=== PATIENT | male | born 1970 | race Native Hawaiian/Other Pacific Islander ===

== ENCOUNTER 2022-04-18 09:20 | Emergency (ER) | payer BC ==
[~2022-04-18] VITALS: Ht 182.9 cm; Wt 92.5 kg
[2022-04-18 09:22] VITALS: TEMP 97.7
[2022-04-18 10:38] LABS: PLATELET COUNT 303 K/uL (142-355)
[2022-04-18 10:44] LABS: POTASSIUM 4.1 mmol/L (3.6-5.2)
[2022-04-18 11:21] VITALS: BP 124/72
== END 2022-04-18 11:20 | disposition home or self-care (01) ==
LOC: ED 09:20
PROVIDERS: Emergency Medicine
DX: M79.18 Myalgia, other site (principal)
CPT/HCPCS: 36415; 80053; 80307; 81000; 82550; 85027; 96372; 99283; J1885